=== PATIENT | female | born 1980 | race Caucasian/White ===

== ENCOUNTER 2017-01-19 15:59 | Emergency (ER) | payer SELFPAY ==
[~2017-01-19] VITALS: Ht 152.4 cm; Wt 69.0 kg
[2017-01-19 17:08] LABS: BASOPHIL % 0.5 % (0-2); PLATELET COUNT 298 x10^3mcL (130-400); RED CELL DISTRIBUTION WIDTH 13.5 % (11.5-14.5)
[2017-01-19 17:24] LABS: CALCIUM 9.2 mg/dL (8.5-10.1); CARBON DIOXIDE 28.6 mmol/L (21-32); CHLORIDE SERUM 103 mmol/L (98-107); CREATININE SERUM 0.7 mg/dL (0.6-1.0); GFR1 > 60 mL/min; GLUCOSE SERUM 85 mg/dL (74-106); POTASSIUM SERUM 3.8 mmol/L (3.5-5.1); SODIUM SERUM 139 mmol/L (136-145)
[2017-01-19 17:31] LABS: ALBUMIN 3.8 g/dL (3.4-5.0); ALKALINE PHOSPHATASE 105 U/L (46-116); ALT/SGPT 34 U/L (14-59); AST/SGOT 18 U/L (15-37); BILIRUBIN TOTAL 0.3 mg/dL (0.20-1.00); TOTAL PROTEIN, SERUM 8.2 g/dL (6.4-8.2)
[2017-01-19 17:58] LABS: CK-MB < 0.5 ng/mL (0-3.6); CREATINE KINASE 124 U/L (26-192)
[2017-01-19 19:57] VITALS: BP 126/79
== END 2017-01-19 19:57 | disposition home or self-care (01) ==
LOC: ED 15:59
PROVIDERS: Emergency Medicine
DX: R07.89 Other chest pain (principal); F43.9 Reaction to severe stress, unspecified
CPT/HCPCS: 36415; 83880; 85378

== ENCOUNTER 2019-02-26 20:23 | Emergency (ER) | payer MEDICAID ==
[~2019-02-26] VITALS: Ht 152.4 cm; Wt 54.9 kg
[2019-02-26 20:39] VITALS: Ht 152.4 cm; Wt 54.9 kg
[2019-02-26 23:18] VITALS: BP 104/63
== END 2019-02-26 23:05 | disposition home or self-care (01) ==
LOC: ED 20:23
DX: H60.502 Unspecified acute noninfective otitis externa, left ear (principal)
CPT/HCPCS: Q0162